=== PATIENT | female | born 1960 | race Caucasian/White ===

== ENCOUNTER → 2018-01-29 | Outpatient (CLI) | payer BC ==
--- NOTE | 2018-01-29 11:06 | RAD ---
EXAM DESCRIPTION: Chest,2 Views CLINICAL HISTORY: CHEST PAIN COMPARISON: None TECHNIQUE: PA/lateral FINDINGS: Dextroscoliotic curvature of the T-spine. There is slight blunting of the posterior costophrenic angles. This is due to hyperexpansion rather than pleural fluid. Heart size is normal with normal pulmonary vascularity. No pleural effusion or pneumothorax. Lungs are hyperexpanded with no consolidating infiltrate. Few scattered granulomas in the right lung. Lateral view shows intact sternum and T-spine. IMPRESSION: Hyperexpanded lungs. No consolidating infiltrate. Electronically signed by: John Lockett MD 01/29/2018 11:05 AM CDT
== END ==
LOC: YCFC.O 07:48
PROVIDERS: ATTEND Nurse Practitioner Family
DX: Z00.00 Encounter for general adult medical examination without abnormal findings (principal); Z13.220 Encounter for screening for lipoid disorders; R07.89 Other chest pain; R25.1 Tremor, unspecified; J98.4 Other disorders of lung

== ENCOUNTER → 2018-02-27 | Outpatient (CLI) | payer BC | LOC: YCFC.O 08:36 | PROVIDERS: ATTEND Nurse Practitioner Family | DX: E03.9 Hypothyroidism, unspecified (principal) ==